=== PATIENT | male | born 1950 | race Hispanic/Latino ===

== ENCOUNTER → 2017-07-15 | Outpatient (CLI) | payer OTHER | LOC: OIH 15:16 | PROVIDERS: ATTEND Family Medicine | DX: I10 Essential (primary) hypertension (principal) | CPT/HCPCS: 71046 ==

== ENCOUNTER → 2017-11-17 | Outpatient (CLI) | payer OTHER ==
[~2017-11-17] MED LIST: MIDAZOLAM HCL 1 MG/ML 2ML VIAL ONE; PROPOFOL 10 MG/ML 20ML VIAL IV ONE
== END | disposition home or self-care (01) ==
LOC: OIH 10:46
PROVIDERS: ATTEND Family Medicine
DX: M47.22 Other spondylosis with radiculopathy, cervical region (principal); M17.0 Bilateral primary osteoarthritis of knee
CPT/HCPCS: 72040; 73562

== ENCOUNTER 2019-11-04 22:28 | Emergency (ER) | payer OTHER ==
[2019-11-04] MEDS ORDERED: MORPHINE SULFATE 4 MG/1ML SYG ONE (22:52)
[2019-11-04] MEDS ORDERED: ONDANSETRON HCL 4 MG/2 ML VIAL ONE (22:52)
[2019-11-04] MEDS ORDERED: TETANUS/DIPHTHERIA TOXOID [ADULT] 0.5 ML VIAL IM ONE (22:52)
[2019-11-04] MEDS ORDERED: KETOROLAC TROMETHAMINE 15MG/ML ONE (23:56)
[2019-11-04] MEDS ORDERED: CEFAZOLIN SODIUM 1 GM VIAL ONE (23:56)
[2019-11-04] MEDS ORDERED: SODIUM CHLORIDE 0.9% 50 ML IV ONE (23:57)
== END 2019-11-08 00:21 | disposition home or self-care (01) ==
LOC: EDH 22:28
DX: S90.32XA Contusion of left foot, initial encounter (principal); E11.9 Type 2 diabetes mellitus without complications; W18.39XA Other fall on same level, initial encounter; Y93.89 Activity, other specified; Y92.098 Other place in other non-institutional residence as the place of occurrence of the external cause; Y99.8 Other external cause status
CPT/HCPCS: 73630; 90471; 90714; 96365; 96375; 99284; J0690; J1885; J2270; J2405

== ENCOUNTER → 2019-11-17 | Outpatient (CLI) | payer OTHER | END | disposition home or self-care (01) | LOC: OIH 09:03 | PROVIDERS: ATTEND Family Medicine | DX: M19.072 Primary osteoarthritis, left ankle and foot (principal); M77.32 Calcaneal spur, left foot ==

== ENCOUNTER → 2020-05-10 | Outpatient (CLI) | payer OTHER | END | disposition home or self-care (01) | LOC: OIH 09:56 | PROVIDERS: ATTEND Family Medicine | DX: M25.561 Pain in right knee (principal); M25.511 Pain in right shoulder | CPT/HCPCS: 73030; 73562 ==